=== PATIENT | female | born 1975 | race American Indian/Alaskan Native ===

== ENCOUNTER 2017-08-04 03:05 | Emergency (ER) | payer OTHER ==
[2017-08-04 03:40] LABS: Basophils # (Auto) 0.2 K/mm3 (0.0-0.1); Basophils % (Auto) 1.5 % (0.0-1.8); Eosinophils # (Auto) 0.4 K/mm3 (0.0-0.4); Hematocrit 26.7 % (30.3-42.9); Hemoglobin 9.6 gm/dl (10.1-14.3); Lymphocytes # (Auto) 1.4 K/mm3 (1.2-5.4); Lymphocytes % (Auto) 14.3 % (13.4-35.0); Mean Corpuscular HGB Conc 36 % (30-34); Mean Corpuscular Hemoglobin 34 pg (28-32); Mean Corpuscular Volume 94 fl (79-97); Monocytes # (Auto) 1.2 K/mm3 (0.0-0.8); Monocytes % (Auto) 12.3 % (0.0-7.3); Platelet Count 474 K/mm3 (140-440); Red Blood Count 2.84 M/mm3 (3.65-5.03); Red Cell Distribution Width 16.5 % (13.2-15.2)
[2017-08-04 03:47] VITALS: BP 136/89
[2017-08-04 03:53] LABS: Alanine Aminotransferase 15 units/L (7-56); Albumin 4.1 g/dL (3.9-5); BUN/Creatinine Ratio 25; Blood Urea Nitrogen 10 mg/dL (7-17); Calcium 8.4 mg/dL (8.4-10.2); Hemolysis Index 57; Lipase 27 units/L (13-60)
[2017-08-04] MEDS ORDERED: ZOFRAN IV ONE (03:53)
[2017-08-04] MEDS ORDERED: NACL 0.9% 1000 ML 1,000 ML IV ONE (03:53)
[2017-08-04] MEDS ORDERED: MORPHINE IV ONE (03:53)
[2017-08-04 04:38] LABS: Amorphous Crystals,Urine 1+; Bilirubin,Urine NEG (Negative); Blood,Urine LG (Negative); Color,Urine Yellow (Yellow); Mucus,Urine FEW /HPF; Protein,Urine <15 mg/dL mg/dL (Negative)
--- NOTE | 2017-08-04 05:37 | Emergency Department Report ---
HPI - General Chief Complaint: Abdominal Pain Time Seen by Provider: 08/04/17 03:35 - HPI HPI: The patient is a 41-year-old female presents for members of abdominal pain. The patient reports onset of abdominal pain at 1 AM, constant since onset, 10/ in severity, crampy in quality, exacerbated with retching, and associated with nausea and multiple episodes of nonbilious, nonbloody emesis. She states that she believes she has a infection from [place] food that she ate earlier tonight. The patient denies fever, chills, night sweats, diarrhea, blood in the stool, dark tarry stool, dysuria, hematuria, flank pain, genital discharge, inability to pass flatus. ED Past Medical Hx - Past Medical History Previous Medical History?: Yes Hx Sickle Cell Disease: Yes - Surgical History Past Surgical History?: Yes Additional Surgical History: - Social History Smoking Status: Current Every Day Smoker Substance Use Type: None, Alcohol - Medications Home Medications: Home Medications Medication Instructions Recorded Confirmed Last Taken Type HYDROcodone/APAP 5-325 [[place] 1 each PO Q6HR PRN #30 tablet 01/10/16 Unknown Rx 5/325] Polyethylene Glycol 3350 [Miralax 17 gm PO QDAY PRN #20 packet 01/10/16 Unknown Rx 3350] Acetaminophen/Codeine [Tylenol #3] 1 tab PO Q6H PRN #9 tab 03/15/16 Unknown Rx Bacitracin Zinc Oint 1 applicatio TP BID #1 tube 03/15/16 Unknown Rx Cephalexin [Keflex] 500 mg PO Q12HR #14 cap 03/15/16 Unknown Rx Ibuprofen [Motrin] 600 mg PO Q8H PRN #12 tablet 03/15/16 Unknown Rx Ondansetron [Zofran TAB] 4 mg PO Q8HR PRN #20 tablet 08/04/17 Unknown Rx traMADol [Ultram 50 MG tab] 50 mg PO Q6HR PRN #15 tablet 08/04/17 Unknown Rx ED Review of Systems ROS: Stated complaint: ABD PAIN Other details as noted in HPI Constitutional: denies: fever ENT: denies: throat or neck pain Respiratory: denies: cough, shortness of breath Cardiovascular: denies: chest pain Endocrine: denies unexplained weight loss or gain Gastrointestinal: reports abdominal pain, nausea Genitourinary: denies: dysuria Musculoskeletal: denies: leg swelling Skin: denies: rash Neurological: denies: headache Hematological/Lymphatic: denies: easy bleeding or easy bruising Psych: denies sadness or hopelessness Physical Exam - Physical Exam Vital Signs: Vital Signs 08/04/17 08/04/17 08/04/17 03:10 03:40 03:45 Temperature 98.6 F Pulse Rate 76 71 Respiratory 18 18 18 Rate Blood Pressure 138/90 Blood Pressure 136/89 [Right] O2 Sat by Pulse 96 98 Oximetry Physical Exam: General: well-nourished, well-developed, no acute distress Head: Normocephalic, atraumatic Eyes: normal sclera ENT: Mucous membranes are pink and moist Neck: trachea midline, neck supple, No neck stiffness, no cervical adenopathy Respiratory: Breath sounds equal bilaterally, no wheezing, rales, or rhonchi Cardio: S1 and S2 present, no murmurs, rubs, gallops, capillary refill is brisk Abdomen: Normoactive bowel sounds, soft abdomen, epigastric tenderness to palpation present, no rigidity, no guarding or rebound tenderness Musc: No pitting edema Skin: No rash Neuro: no facial drooping, normal speech Psych: Normal affect ED Course Vital Signs 08/04/17 08/04/17 08/04/17 03:10 03:40 03:45 Temperature 98.6 F Pulse Rate 76 71 Respiratory 18 18 18 Rate Blood Pressure 138/90 Blood Pressure 136/89 [Right] O2 Sat by Pulse 96 98 Oximetry ED Medical Decision Making - Lab Data Result diagrams: 08/04/17 03:23 08/04/17 03:23 - Medical Decision Making The patient was seen and examined by myself. The patient is placed on a funeral attendant and continuous pulse ox. On initial evaluation, the patient was found to be in no distress. Evaluation orders are placed. IV access is established and the patient is given 1 L normal saline fluid bolus and Zofran for nausea, and IV analgesic for pain Lab results were non-concerning including WBC, hemoglobin, hematocrit, electrolytes, renal function, LFTs, lipase, and urinalysis. The patient was reevaluated and reported that their symptoms were markedly improved. The patient is stable for discharge with outpatient follow-up. The patient is given follow-up and return instructions. The patient expressed understanding and agreed with the plan. The patient is discharged in stable condition. Critical care attestation.: If time is entered above; I have spent that time in minutes in the direct care of this critically ill patient, excluding procedure time. ED Disposition Clinical Impression: Dehydration, Abdominal pain, acute, Nausea and vomiting in adult Disposition: DC-01 TO HOME OR SELFCARE Is pt being admited?: No Does the pt Need Aspirin: No Condition: Stable Instructions: Abdominal Pain (ED), Gastroenteritis (ED) Referrals: GALINA WHEELER MD [Primary Care Provider] - 3-5 Days Time of Disposition: 05:37
== END 2017-08-04 06:30 | disposition home or self-care (01) ==
LOC: ED 03:05
DX: E86.0 Dehydration (principal); R10.9 Unspecified abdominal pain; R11.2 Nausea with vomiting, unspecified; F17.200 Nicotine dependence, unspecified, uncomplicated
CPT/HCPCS: 36415; 80053; 81001; 83690; 84703; 85025; 96361; 96374; 96375; 99284; J2270; J2405; J7030

== ENCOUNTER 2017-08-04 18:50 | Emergency (ER) | payer OTHER ==
[2017-08-04 19:36] LABS: Hematocrit 27.7 % (30.3-42.9); Hemoglobin 9.8 gm/dl (10.1-14.3); Mean Corpuscular HGB Conc 35 % (30-34); Mean Corpuscular Hemoglobin 33 pg (28-32); Mean Corpuscular Volume 94 fl (79-97); Platelet Count 421 K/mm3 (140-440); Red Blood Count 2.96 M/mm3 (3.65-5.03); Red Cell Distribution Width 16.5 % (13.2-15.2)
[2017-08-04] MEDS ORDERED: DILAUDID IV ONE ×2 (20:00→21:48)
[2017-08-04] MEDS ORDERED: ZOFRAN IV ONE (20:01)
[2017-08-04] MEDS ORDERED: NACL 0.9% 1000 ML 1,000 ML IV ONE (20:01)
--- NOTE | 2017-08-04 20:10 | Emergency Department Report ---
HPI - General Chief Complaint: Sickle Cell Crisis Time Seen by Provider: 08/04/17 19:53 - HPI HPI: Room 7 The patient is a 41-year-old female presenting with chief complaint sickle cell pain crisis. The patient states she was here previously after abdominal pain and back pain and nausea and vomiting after eating [place] food. The patient states she was treated and released. The patient states she took the Toradol those prescribed to her but it did not help. Patient states she then began developing pain consistent with her sickle cell crises and bilateral shoulders in the right lower extremity. The patient gives her pain a score of 10/10 Location: [See above] Duration: [See above] Quality: Sickle cell pain Severity: 10/10 Modifying factors: [see above] Context: [see above] Mode of transportation: [not driving] ED Past Medical Hx - Past Medical History Hx Sickle Cell Disease: Yes - Surgical History Past Surgical History?: Yes Additional Surgical History: - Family History Family history: no significant - Social History Smoking Status: Current Every Day Smoker (1/7 per day) Substance Use Type: Alcohol (occasional) - Medications Home Medications: Home Medications Medication Instructions Recorded Confirmed Last Taken Type HYDROcodone/APAP 5-325 [[place] 1 each PO Q6HR PRN #30 tablet 01/10/16 Unknown Rx 5/325] Polyethylene Glycol 3350 [Miralax 17 gm PO QDAY PRN #20 packet 01/10/16 Unknown Rx 3350] Acetaminophen/Codeine [Tylenol #3] 1 tab PO Q6H PRN #9 tab 03/15/16 Unknown Rx Bacitracin Zinc Oint 1 applicatio TP BID #1 tube 03/15/16 Unknown Rx Cephalexin [Keflex] 500 mg PO Q12HR #14 cap 03/15/16 Unknown Rx Ibuprofen [Motrin] 600 mg PO Q8H PRN #12 tablet 03/15/16 Unknown Rx HYDROcodone/APAP 5-325 [[place] 1 - 2 each PO Q6HR PRN #14 tablet 08/04/17 Unknown Rx 5/325] Metoclopramide [Reglan] 10 mg PO TID #30 tab 08/04/17 Unknown Rx Ondansetron [Zofran TAB] 4 mg PO Q8HR PRN #20 tablet 08/04/17 Unknown Rx Simethicone [Bicarsim Forte] 125 mg PO Q6HR #30 tab 08/04/17 Unknown Rx traMADol [Ultram 50 MG tab] 50 mg PO Q6HR PRN #15 tablet 08/04/17 Unknown Rx ED Review of Systems ROS: Stated complaint: SICKLE CELL Other details as noted in HPI Gastrointestinal: abdominal pain Musculoskeletal: myalgia Hematological/Lymphatic: other (sickle cell pain crisis) Physical Exam - Physical Exam Vital Signs: Vital Signs 08/04/17 19:12 Temperature 98.6 F Pulse Rate 87 Respiratory 20 Rate Blood Pressure 162/78 Blood Pressure 162/78 [Left] O2 Sat by Pulse 98 Oximetry Physical Exam: GENERAL: The patient is well-developed well-nourished female lying on stretcher appearing to be in mild discomfort [] HEENT: Normocephalic. Atraumatic. Extraocular motions are intact. Patient has moist mucous membranes. NECK: Supple. Trachea midline CHEST/LUNGS: Clear to auscultation. There is no respiratory distress noted. HEART/CARDIOVASCULAR: Regular. There is no tachycardia. There is no gallop rub or murmur. ABDOMEN: Abdomen is soft. Patient has normal bowel sounds. There is no abdominal distention. SKIN: There is no rash. There is no edema. There is no diaphoresis. NEURO: The patient is awake, alert, and oriented. The patient is cooperative. The patient has normal speech MUSCULOSKELETAL: There is no evidence of acute injury. ED Course Vital Signs 08/04/17 19:12 Temperature 98.6 F Pulse Rate 87 Respiratory 20 Rate Blood Pressure 162/78 Blood Pressure 162/78 [Left] O2 Sat by Pulse 98 Oximetry ED Medical Decision Making - Lab Data Result diagrams: 08/04/17 19:28 Laboratory Tests 08/04/17 19:28 WBC 15.7 H RBC 2.96 L Hgb 9.8 L Hct 27.7 L MCV 94 MCH 33 H MCHC 35 H RDW 16.5 H Plt Count 421 Percent Retic 7.98 H - Radiology Data Radiology results: report reviewed (CT abdomen and pelvis), image reviewed (CT abdomen and pelvis) FINAL REPORT EXAM: CT ABDOMEN PELVIS W CON HISTORY: abdominal pain, bloating TECHNIQUE: Standard enhanced CT of the abdomen and pelvis. Coronal and sagittal reconstruction was also performed. Delayed images through the kidneys and bladder was also obtained. Contrast: 100 mL Omnipaque 300 given IV. PRIORS: None. FINDINGS: Within the abdomen, the liver, spleen, pancreas, gallbladder, adrenal glands, and kidneys are unremarkable. No evidence for retroperitoneal or pelvic lymphadenopathy is seen. No soft tissue mass, fluid collection, inflammatory change, or free air is seen within the abdomen or pelvis. The appendix is normal. There is generalized distention of the colon up to the proximal sigmoid colon. The remainder of the colon is collapsed. No definite obstructing mass or inflammation is seen at the transition site (axial image 84). The entire small bowel has a normal caliber and the stomach is not distended. Within the pelvis, the bladder is unremarkable. Bilateral ureteral jets are noted on delayed imaging. The uterus is normal. In the left adnexa, there is a complex mass measuring at least 3.5 x 4.7 x 5.2 cm (axial image 125, coronal 98). This complex focus has fat, fluid, and calcification and is highly consistent with an ovarian dermoid. No evidence for mass or lymphadenopathy is seen in the pelvis. Images through the upper abdomen include the lung bases which are expanded and clear. Bony structures show diffuse areas of lucency and sclerosis particularly throughout the pelvis, proximal femurs, and L5. Vertebral bodies have an H-shaped configuration throughout. Correlation with any history of hemoglobinopathies such as sickle cell anemia should be performed. More rarely, this can be seen in Gaucher disease. IMPRESSION: 1. Distention of the colon up to the proximal sigmoid colon. No etiology for the transition is seen. The distal colon and rectum are collapsed. Findings may be consistent with mild ileus 2. 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 Abnormal appearance to the bony structures. Correlation with any hemoglobinopathies such as sickle cell anemia should be performed. Transcribed By: [facility] Dictated By: PRASANTH LUND MD Electronically Authenticated By: PRASANTH LUND MD Signed Date/Time: 08/04/172134 DD/ 34 TD/TT: 08/04/172134 - Differential Diagnosis gastritis, gastroenteritis, sickle cell pain crisis Critical care attestation.: If time is entered above; I have spent that time in minutes in the direct care of this critically ill patient, excluding procedure time. ED Disposition Clinical Impression: Sickle cell pain crisis, Ileus Disposition: TO HOME OR SELFCARE Is pt being admited?: No Does the pt Need Aspirin: No Condition: Stable Instructions: Ileus (ED), Sickle Cell Crisis (ED) Additional Instructions: Return to the emergency department immediately should you develop worsening symptoms, fever, inability to tolerate food or liquid or any other concerns. Prescriptions: HYDROcodone/APAP 5-325 [[place] 5/325] 1 - 2 each PO Q6HR PRN #14 tablet PRN Reason: Pain Metoclopramide [Reglan] 10 mg PO TID #30 tab Simethicone [Bicarsim Forte] 125 mg PO Q6HR #30 tab Referrals: GALINA WHEELER MD [Primary Care Provider] - 3-5 Days KEN MILLER DO [Staff Physician] - 3-5 Days ( is a blood bank manager. Please follow-up with him for further evaluation) LES CORADO MD [Staff Physician] - 3-5 Days (Dr. Corado is a cabin equipment supervisor. Please follow-up with him for further evaluation) Time of Disposition: 21:45
[2017-08-04 20:39] LABS: Bacteria,Urine 3+ /HPF (Negative); Bilirubin,Urine NEG (Negative); Blood,Urine LG (Negative); Color,Urine Yellow (Yellow); Mucus,Urine FEW /HPF; Urobilinogen,Urine < 2.0 mg/dL (<2.0)
[2017-08-04 20:48] LABS: Band Neutrophils # (Manual) 1.9 K/mm3; Basophils % (Manual) 0 % (0.0-1.8); Eosinophils % (Manual) 0 % (0.0-4.3); Total Cells Counted 100
[2017-08-04 20:51] LABS: Anisocytosis 3+; Sickle Cells 1+; Target Cells 1+
[2017-08-04 20:52] LABS: Platelet Estimate Consistent w Auto; Poikilocytosis 1+
[2017-08-04] MEDS ORDERED: MYLICON PO ONE (21:00)
--- NOTE | 2017-08-04 21:39 | Cat Scan Report ---
FINAL REPORT EXAM: CT ABDOMEN PELVIS W CON HISTORY: abdominal pain, bloating TECHNIQUE: Standard enhanced CT of the abdomen and pelvis. Coronal and sagittal reconstruction was also performed. Delayed images through the kidneys and bladder was also obtained. Contrast: 100 mL Omnipaque 300 given IV. PRIORS: None. FINDINGS: Within the abdomen, the liver, spleen, pancreas, gallbladder, adrenal glands, and kidneys are unremarkable. No evidence for retroperitoneal or pelvic lymphadenopathy is seen. No soft tissue mass, fluid collection, inflammatory change, or free air is seen within the abdomen or pelvis. The appendix is normal. There is generalized distention of the colon up to the proximal sigmoid colon. The remainder of the colon is collapsed. No definite obstructing mass or inflammation is seen at the transition site (axial image 84). The entire small bowel has a normal caliber and the stomach is not distended. Within the pelvis, the bladder is unremarkable. Bilateral ureteral jets are noted on delayed imaging. The uterus is normal. In the left adnexa, there is a complex mass measuring at least 3.5 x 4.7 x 5.2 cm (axial image 125, coronal 98). This complex focus has fat, fluid, and calcification and is highly consistent with an ovarian dermoid. No evidence for mass or lymphadenopathy is seen in the pelvis. Images through the upper abdomen include the lung bases which are expanded and clear. Bony structures show diffuse areas of lucency and sclerosis particularly throughout the pelvis, proximal femurs, and L5. Vertebral bodies have an H-shaped configuration throughout. Correlation with any history of hemoglobinopathies such as sickle cell anemia should be performed. More rarely, this can be seen in Gaucher disease. IMPRESSION: 1. Distention of the colon up to the proximal sigmoid colon. No etiology for the transition is seen. The distal colon and rectum are collapsed. Findings may be consistent with mild ileus 2. 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 Abnormal appearance to the bony structures. Correlation with any hemoglobinopathies such as sickle cell anemia should be performed.
[2017-08-04] MEDS ORDERED: REGLAN IV ONE (21:48)
[2017-08-04 23:13] VITALS: BP 122/78
== END 2017-08-04 23:00 | disposition home or self-care (01) ==
LOC: ED 18:50
DX: D57.00 Hb-SS disease with crisis, unspecified (principal); K56.7 Ileus, unspecified; F17.200 Nicotine dependence, unspecified, uncomplicated
CPT/HCPCS: 36415; 74177; 81001; 85007; 85025; 85045; 96361; 96374; 96375; 96376; 99284; J1170; J2405; J2765; J7030; Q9967

== ENCOUNTER 2018-09-17 11:46 | Emergency (ER) | payer OTHER ==
--- NOTE | 2018-09-17 11:54 | Emergency Department Report ---
Chief Complaint: Back Pain/Injury Stated Complaint: BACK/ABD/HIP PAIN Time Seen by Provider: 09/17/18 11:52 - HPI History of Present Illness: HX SCD OFF MEDS PCP NONE PSH CSEC LMP LAST MONTH 10TH NO KNOW DRUG ALLERGIES CO FREQUENCY, LOW BACK PAIN AND ABD PAIN. LAST CRISIS "BEEN A WHILE" MSE COMPLETED MSE screening note: Focused history and physical exam performed. Due to findings the following was ordered: ED Disposition for MSE Condition: Stable
[2018-09-17] MEDS ORDERED: NACL 0.9% 1000 ML 1,000 ML IV ONE (11:55)
[2018-09-17] MEDS ORDERED: NORCO 10/325 PO ONE (11:56)
[2018-09-17 12:21] LABS: Hematocrit 27.8 % (30.3-42.9); Hemoglobin 9.8 gm/dl (10.1-14.3); Mean Corpuscular HGB Conc 35 % (30-34); Mean Corpuscular Volume 99 fl (79-97); Platelet Count 425 K/mm3 (140-440); Red Blood Count 2.82 M/mm3 (3.65-5.03); Red Cell Distribution Width 16.2 % (13.2-15.2)
[2018-09-17 12:44] LABS: Alanine Aminotransferase 11 units/L (7-56); Albumin 4.3 g/dL (3.9-5); BUN/Creatinine Ratio 23; Blood Urea Nitrogen 9 mg/dL (7-17); Calcium 8.5 mg/dL (8.4-10.2); Hemolysis Index 17
[2018-09-17 13:06] LABS: Bilirubin,Urine NEG (Negative); Blood,Urine NEG (Negative); Color,Urine Yellow (Yellow); Mucus,Urine FEW /HPF; Protein,Urine <15 mg/dL mg/dL (Negative); Urobilinogen,Urine < 2.0 mg/dL (<2.0); WBC,Urine < 1.0 /HPF (0.0-6.0)
[2018-09-17 13:07] LABS: HCG Qualitative,Urine Negative (Negative)
--- NOTE | 2018-09-17 13:31 | Emergency Department Report ---
ED Back Pain/Injury HPI - General Chief Complaint: Back Pain/Injury Stated Complaint: BACK/ABD/HIP PAIN Time Seen by Provider: 09/17/18 11:52 Source: patient Limitations: No Limitations - History of Present Illness Initial Comments: This is a foot row-[id number] female with a history of sickle cell disease who presents to ED complaining of low back pain 2-3 days. Patient also is complaining of frequent urination but denies dysuria or vaginal bleeding. Patient states that she knows her urine is darker than normal. MD Complaint: back pain -: Gradual Place: home Radiation: none Severity: mild Severity scale (0 -10): 4 - Related Data Previous Rx's Medication Instructions Recorded Last Taken Type HYDROcodone/APAP 5-325 [[place] 1 each PO Q6HR PRN #30 tablet 01/10/16 Unknown Rx 5/325] Polyethylene Glycol 3350 [Miralax 17 gm PO QDAY PRN #20 packet 01/10/16 Unknown Rx 3350] Bacitracin Zinc Oint 1 applicatio TP BID #1 tube 03/15/16 Unknown Rx Ibuprofen [Motrin] 600 mg PO Q8H PRN #12 tablet 03/15/16 Unknown Rx cephALEXin [Keflex] 500 mg PO Q12HR #14 cap 03/15/16 Unknown Rx HYDROcodone/APAP 5-325 [[place] 1 - 2 each PO Q6HR PRN #14 tablet 08/04/17 Unknown Rx 5/325] Metoclopramide [Reglan] 10 mg PO TID #30 tab 08/04/17 Unknown Rx Ondansetron [Zofran TAB] 4 mg PO Q8HR PRN #20 tablet 08/04/17 Unknown Rx Simethicone [Bicarsim Forte] 125 mg PO Q6HR #30 tab 08/04/17 Unknown Rx traMADol [Ultram 50 MG tab] 50 mg PO Q6HR PRN #15 tablet 08/04/17 Unknown Rx HYDROcodone/ACETAMINOPHEN [[place] 1 each PO Q6HR #12 tablet 05/15/18 Unknown Rx 5-325 Tablet] Acetaminophen/Codeine [Tylenol 1 tab PO Q6H PRN #9 tab 09/17/18 Unknown Rx /Codeine # 3 tab] Cyclobenzaprine [Flexeril] 10 mg PO QHS PRN #25 tablet 09/17/18 Unknown Rx Allergies Allergy/AdvReac Type Severity Reaction Status Date / Time No Known Allergies Allergy Verified 05/15/18 08:09 ED Review of Systems ROS: Stated complaint: BACK/ABD/HIP PAIN Other details as noted in HPI Comment: All other systems reviewed and negative ED Past Medical Hx - Past Medical History Previous Medical History?: Yes Hx Sickle Cell Disease: Yes - Surgical History Past Surgical History?: Yes Additional Surgical History: - Social History Smoking Status: Current Every Day Smoker Substance Use Type: None - Medications Home Medications: Home Medications Medication Instructions Recorded Confirmed Last Taken Type HYDROcodone/APAP 5-325 [[place] 1 each PO Q6HR PRN #30 tablet 01/10/16 Unknown Rx 5/325] Polyethylene Glycol 3350 [Miralax 17 gm PO QDAY PRN #20 packet 01/10/16 Unknown Rx 3350] Bacitracin Zinc Oint 1 applicatio TP BID #1 tube 03/15/16 Unknown Rx Ibuprofen [Motrin] 600 mg PO Q8H PRN #12 tablet 03/15/16 Unknown Rx cephALEXin [Keflex] 500 mg PO Q12HR #14 cap 03/15/16 Unknown Rx HYDROcodone/APAP 5-325 [[place] 1 - 2 each PO Q6HR PRN #14 tablet 08/04/17 Unknown Rx 5/325] Metoclopramide [Reglan] 10 mg PO TID #30 tab 08/04/17 Unknown Rx Ondansetron [Zofran TAB] 4 mg PO Q8HR PRN #20 tablet 08/04/17 Unknown Rx Simethicone [Bicarsim Forte] 125 mg PO Q6HR #30 tab 08/04/17 Unknown Rx traMADol [Ultram 50 MG tab] 50 mg PO Q6HR PRN #15 tablet 08/04/17 Unknown Rx HYDROcodone/ACETAMINOPHEN [[place] 1 each PO Q6HR #12 tablet 05/15/18 Unknown Rx 5-325 Tablet] Acetaminophen/Codeine [Tylenol 1 tab PO Q6H PRN #9 tab 09/17/18 Unknown Rx /Codeine # 3 tab] Cyclobenzaprine [Flexeril] 10 mg PO QHS PRN #25 tablet 09/17/18 Unknown Rx ED Physical Exam - General Limitations: No Limitations General appearance: alert, in no apparent distress - Head Head exam: Present: atraumatic, normocephalic - Eye Eye exam: Present: normal appearance - ENT ENT exam: Present: mucous membranes moist - Neck Neck exam: Present: normal inspection - Respiratory Respiratory exam: Present: normal lung sounds bilaterally. Absent: respiratory distress - Cardiovascular Cardiovascular Exam: Present: regular rate, normal rhythm. Absent: systolic murmur, diastolic murmur, rubs, gallop - GI/Abdominal GI/Abdominal exam: Present: soft, normal bowel sounds. Absent: distended, tenderness, guarding - Extremities Exam Extremities exam: Present: normal inspection - Back Exam Back exam: Present: normal inspection, full ROM. Absent: tenderness, CVA tenderness (R), CVA tenderness (L) - Neurological Exam Neurological exam: Present: alert, oriented X3, normal gait - Psychiatric Psychiatric exam: Present: normal affect, normal mood - Skin Skin exam: Present: warm, dry, intact, normal color. Absent: rash ED Course Vital Signs 09/17/18 11:51 Temperature 98.2 F Pulse Rate 80 Respiratory 16 Rate Blood Pressure 159/92 O2 Sat by Pulse 99 Oximetry ED Medical Decision Making - Lab Data Result diagrams: 09/17/18 12:05 09/17/18 12:05 Laboratory Last Values WBC 9.7 K/mm3 (4.5-11.0) 09/17/18 12:05 RBC 2.82 M/mm3 (3.65-5.03) L 09/17/18 12:05 Hgb 9.8 gm/dl (10.1-14.3) L 09/17/18 12:05 Hct 27.8 % (30.3-42.9) L 09/17/18 12:05 MCV 99 fl (79-97) H 09/17/18 12:05 MCH 35 pg (28-32) H 09/17/18 12:05 MCHC 35 % (30-34) H 09/17/18 12:05 RDW 16.2 % (13.2-15.2) H 09/17/18 12:05 Plt Count 425 K/mm3 (140-440) 09/17/18 12:05 Percent Retic 6.69 % (0.78-2.58) H 09/17/18 12:05 Sodium 136 mmol/L (137-145) L 09/17/18 12:05 Potassium 4.2 mmol/L (3.6-5.0) 09/17/18 12:05 Chloride 100.7 mmol/L (98-107) 09/17/18 12:05 Carbon Dioxide 23 mmol/L (22-30) 09/17/18 12:05 Anion Gap 17 mmol/L 09/17/18 12:05 BUN 9 mg/dL (7-17) 09/17/18 12:05 Creatinine 0.4 mg/dL (0.7-1.2) L 09/17/18 12:05 Estimated GFR > 60 ml/min 09/17/18 12:05 BUN/Creatinine Ratio 23 % 09/17/18 12:05 Glucose 92 mg/dL (65-100) 09/17/18 12:05 Calcium 8.5 mg/dL (8.4-10.2) 09/17/18 12:05 Total Bilirubin 1.20 mg/dL (0.1-1.2) 09/17/18 12:05 AST 34 units/L (5-40) 09/17/18 12:05 ALT 11 units/L (7-56) 09/17/18 12:05 Alkaline Phosphatase 82 units/L (35-129) 09/17/18 12:05 Total Protein 7.5 g/dL (6.3-8.2) 09/17/18 12:05 Albumin 4.3 g/dL (3.9-5) 09/17/18 12:05 Albumin/Globulin Ratio 1.3 % 09/17/18 12:05 Urine Color Yellow (Yellow) 09/17/18 12:26 Urine Turbidity Clear (Clear) 09/17/18 12:26 Urine pH 5.0 (5.0-7.0) 09/17/18 12:26 Ur Specific [place] 1.010 (1.003-1.030) 09/17/18 12:26 Urine Protein <15 mg/dl mg/dL (Negative) 09/17/18 12:26 Urine Glucose (UA) Neg mg/dL (Negative) 09/17/18 12:26 Urine Ketones Neg mg/dL (Negative) 09/17/18 12:26 Urine Blood Neg (Negative) 09/17/18 12:26 Urine Nitrite Neg (Negative) 09/17/18 12:26 Urine Bilirubin Neg (Negative) 09/17/18 12:26 Urine Urobilinogen < 2.0 mg/dL (<2.0) 09/17/18 12:26 Ur Leukocyte Esterase Neg (Negative) 09/17/18 12:26 Urine WBC (Auto) < 1.0 /HPF (0.0-6.0) 09/17/18 12:26 Urine RBC (Auto) 1.0 /HPF (0.0-6.0) 09/17/18 12:26 U Epithel Cells (Auto) 2.0 /HPF (0-13.0) 09/17/18 12:26 Urine Mucus Few /HPF 09/17/18 12:26 Urine HCG, Qual Negative (Negative) 09/17/18 12:26 - Medical Decision Making 42-year-old female presents with lower back muscle strain. Labs within normal limits, patient is not in sickle cell crisis Patient is in no acute distress. Patient understands pain medication in the ED D. Labs are within normal limits. Reticulocyte count is 6.9 which is appropriate given the patient's history. Patient states she will follow-up with her primary care doctor. She is in no respiratory distress and states she'll follow up. Patient discharged home with instructions and medications Critical care attestation.: If time is entered above; I have spent that time in minutes in the direct care of this critically ill patient, excluding procedure time. ED Disposition Clinical Impression: Strain of muscle, fascia and tendon of lower back, initial encounter Disposition: TO HOME OR SELFCARE Is pt being admited?: No Does the pt Need Aspirin: No Condition: Stable Instructions: Muscle Strain (ED), Low Back Strain (ED), Acute Low Back Pain (ED) Additional Instructions: Make sure to follow up with the primary care physician as discussed. Take all your medications as you've been prescribed. If you have any worsening symptoms or develop new symptoms please return to ED immediately. Prescriptions: Cyclobenzaprine [Flexeril] 10 mg PO QHS PRN #25 tablet PRN Reason: Muscle Spasm Acetaminophen/Codeine [Tylenol /Codeine # 3 tab] 1 tab PO Q6H PRN #9 tab PRN Reason: Pain , Severe (7-10) Referrals: SIMON PIERCE MD [Primary Care Provider] - 3-5 Days Forms: Work/School Release Form(ED) Time of Disposition: 14:03
[2018-09-17 20:52] VITALS: BP 159/92
== END 2018-09-17 14:24 | disposition home or self-care (01) ==
LOC: ED 11:46
DX: S39.012A Strain of muscle, fascia and tendon of lower back, initial encounter (principal); R35.0 Frequency of micturition; D57.1 Sickle-cell disease without crisis; F17.200 Nicotine dependence, unspecified, uncomplicated; X58.XXXA Exposure to other specified factors, initial encounter; Y93.89 Activity, other specified; Y92.89 Other specified places as the place of occurrence of the external cause; Y99.8 Other external cause status
CPT/HCPCS: 36415; 80053; 81001; 81025; 85027; 85045; 99283; J7030

== ENCOUNTER 2019-09-08 20:00 | Emergency (ER) | payer OTHER ==
[2019-09-08 21:07] VITALS: BP 153/102
[2019-09-08] MEDS ORDERED: ONDANSETRON 4 MG ODT TAB PO ONE (21:17)
[2019-09-08] MEDS ORDERED: ACETAMINOPHEN 500 MG TAB PO ONE (21:18)
--- NOTE | 2019-09-08 21:42 | Emergency Department Report ---
ED ENT HPI - General Chief complaint: Upper Respiratory Infection Stated complaint: NOSE BLEED Time Seen by Provider: 09/08/19 21:26 Source: patient Mode of arrival: Ambulatory Limitations: No Limitations - History of Present Illness Initial comments: 43-year-old F [place] Citizen female with emerge department complaining of 2-week history of nasal nasal congestion with yellow-green discharge and noticed some blood after blowing her nose earlier this morning. She is not had any issues with bleeding since that time reports no fever chills or sweats no hemoptysis no hematemesis no hematochezia no chest pain or palpitations no trauma. States that she also has had allergies and thinks the pulmonary has been irritating her as well. Location: nose Severity: moderate Quality: dull Improves with: none Worsens with: none - Related Data Previous Rx's Medication Instructions Recorded Last Taken Type HYDROcodone/APAP 5-325 [[place] 1 each PO Q6HR PRN #30 tablet 01/10/16 Unknown Rx 5/325] polyethylene glycoL 3350 [Miralax 17 gm PO QDAY PRN #20 packet 01/10/16 Unknown Rx 3350] Bacitracin Zinc Oint 1 applicatio TP BID #1 tube 03/15/16 Unknown Rx Ibuprofen [Motrin] 600 mg PO Q8H PRN #12 tablet 03/15/16 Unknown Rx cephALEXin [Keflex] 500 mg PO Q12HR #14 cap 03/15/16 Unknown Rx HYDROcodone/APAP 5-325 [[place] 1 - 2 each PO Q6HR PRN #14 tablet 08/04/17 Unknown Rx 5/325] Metoclopramide [Reglan] 10 mg PO TID #30 tab 08/04/17 Unknown Rx Ondansetron [Zofran TAB] 4 mg PO Q8HR PRN #20 tablet 08/04/17 Unknown Rx Simethicone [Bicarsim Forte] 125 mg PO Q6HR #30 tab 08/04/17 Unknown Rx traMADoL [Ultram 50 MG tab] 50 mg PO Q6HR PRN #15 tablet 08/04/17 Unknown Rx HYDROcodone/ACETAMINOPHEN [[place] 1 each PO Q6HR #12 tablet 05/15/18 Unknown Rx 5-325 Tablet] Acetaminophen/Codeine [Tylenol 1 tab PO Q6H PRN #9 tab 09/17/18 Unknown Rx /Codeine # 3 tab] Cyclobenzaprine [Flexeril] 10 mg PO QHS PRN #25 tablet 09/17/18 Unknown Rx Amoxicillin/Potassium Clav 1 each PO BID #20 tablet 09/08/19 Unknown Rx [Augmentin 875-125 Tablet] Allergies Allergy/AdvReac Type Severity Reaction Status Date / Time No Known Allergies Allergy Verified 09/08/19 21:03 ED Dental HPI - General Chief complaint: Upper Respiratory Infection Stated complaint: NOSE BLEED Time Seen by Provider: 09/08/19 21:26 Source: patient Mode of arrival: Ambulatory Limitations: No Limitations - Related Data Previous Rx's Medication Instructions Recorded Last Taken Type HYDROcodone/APAP 5-325 [[place] 1 each PO Q6HR PRN #30 tablet 01/10/16 Unknown Rx 5/325] polyethylene glycoL 3350 [Miralax 17 gm PO QDAY PRN #20 packet 01/10/16 Unknown Rx 3350] Bacitracin Zinc Oint 1 applicatio TP BID #1 tube 03/15/16 Unknown Rx Ibuprofen [Motrin] 600 mg PO Q8H PRN #12 tablet 03/15/16 Unknown Rx cephALEXin [Keflex] 500 mg PO Q12HR #14 cap 03/15/16 Unknown Rx HYDROcodone/APAP 5-325 [[place] 1 - 2 each PO Q6HR PRN #14 tablet 08/04/17 Unknown Rx 5/325] Metoclopramide [Reglan] 10 mg PO TID #30 tab 08/04/17 Unknown Rx Ondansetron [Zofran TAB] 4 mg PO Q8HR PRN #20 tablet 08/04/17 Unknown Rx Simethicone [Bicarsim Forte] 125 mg PO Q6HR #30 tab 08/04/17 Unknown Rx traMADoL [Ultram 50 MG tab] 50 mg PO Q6HR PRN #15 tablet 08/04/17 Unknown Rx HYDROcodone/ACETAMINOPHEN [[place] 1 each PO Q6HR #12 tablet 05/15/18 Unknown Rx 5-325 Tablet] Acetaminophen/Codeine [Tylenol 1 tab PO Q6H PRN #9 tab 09/17/18 Unknown Rx /Codeine # 3 tab] Cyclobenzaprine [Flexeril] 10 mg PO QHS PRN #25 tablet 09/17/18 Unknown Rx Amoxicillin/Potassium Clav 1 each PO BID #20 tablet 09/08/19 Unknown Rx [Augmentin 875-125 Tablet] Allergies Allergy/AdvReac Type Severity Reaction Status Date / Time No Known Allergies Allergy Verified 09/08/19 21:03 ED Review of Systems ROS: Stated complaint: NOSE BLEED Other details as noted in HPI Comment: All other systems reviewed and negative ED Past Medical Hx - Past Medical History Previous Medical History?: Yes Hx Sickle Cell Disease: Yes - Surgical History Past Surgical History?: Yes Additional Surgical History: x2 - Social History Smoking Status: Current Every Day Smoker Substance Use Type: Alcohol - Medications Home Medications: Home Medications Medication Instructions Recorded Confirmed Last Taken Type HYDROcodone/APAP 5-325 [[place] 1 each PO Q6HR PRN #30 tablet 01/10/16 Unknown Rx 5/325] polyethylene glycoL 3350 [Miralax 17 gm PO QDAY PRN #20 packet 01/10/16 Unknown Rx 3350] Bacitracin Zinc Oint 1 applicatio TP BID #1 tube 03/15/16 Unknown Rx Ibuprofen [Motrin] 600 mg PO Q8H PRN #12 tablet 03/15/16 Unknown Rx cephALEXin [Keflex] 500 mg PO Q12HR #14 cap 03/15/16 Unknown Rx HYDROcodone/APAP 5-325 [[place] 1 - 2 each PO Q6HR PRN #14 tablet 08/04/17 Unknown Rx 5/325] Metoclopramide [Reglan] 10 mg PO TID #30 tab 08/04/17 Unknown Rx Ondansetron [Zofran TAB] 4 mg PO Q8HR PRN #20 tablet 08/04/17 Unknown Rx Simethicone [Bicarsim Forte] 125 mg PO Q6HR #30 tab 08/04/17 Unknown Rx traMADoL [Ultram 50 MG tab] 50 mg PO Q6HR PRN #15 tablet 08/04/17 Unknown Rx HYDROcodone/ACETAMINOPHEN [[place] 1 each PO Q6HR #12 tablet 05/15/18 Unknown Rx 5-325 Tablet] Acetaminophen/Codeine [Tylenol 1 tab PO Q6H PRN #9 tab 09/17/18 Unknown Rx /Codeine # 3 tab] Cyclobenzaprine [Flexeril] 10 mg PO QHS PRN #25 tablet 09/17/18 Unknown Rx Amoxicillin/Potassium Clav 1 each PO BID #20 tablet 09/08/19 Unknown Rx [Augmentin 875-125 Tablet] ED Physical Exam - General Limitations: No Limitations General appearance: alert, in no apparent distress - Head Head exam: Present: atraumatic, normocephalic - Eye Eye exam: Present: normal appearance - ENT ENT exam: Present: mucous membranes moist, other (Nasal irritation bilaterally with excessive the yellow-green mucus. There are several dry readings pulling away from a new mucosal calling causing a deep red friable appearance no active bleeding. There is maxillary sinus tenderness to percussion) - Neck Neck exam: Present: normal inspection - Respiratory Respiratory exam: Present: normal lung sounds bilaterally. Absent: respiratory distress - Cardiovascular Cardiovascular Exam: Present: regular rate, normal rhythm. Absent: systolic murmur, diastolic murmur, rubs, gallop - GI/Abdominal GI/Abdominal exam: Present: soft, normal bowel sounds. Absent: tenderness, rebound, hyperactive bowel sounds, hypoactive bowel sounds, organomegaly, mass - Extremities Exam Extremities exam: Present: normal inspection, normal capillary refill - Back Exam Back exam: Present: normal inspection, full ROM - Neurological Exam Neurological exam: Present: alert, oriented X3, CN II-XII intact, normal gait - Psychiatric Psychiatric exam: Present: normal affect, normal mood - Skin Skin exam: Present: warm, dry, intact, normal color. Absent: rash ED Course Vital Signs 09/08/19 21:00 Temperature 98.8 F Pulse Rate 89 Respiratory 16 Rate Blood Pressure 153/102 O2 Sat by Pulse 95 Oximetry Critical care attestation.: If time is entered above; I have spent that time in minutes in the direct care of this critically ill patient, excluding procedure time. ED Disposition Clinical Impression: Sinusitis Disposition: DC-01 TO HOME OR SELFCARE Is pt being admited?: No Does the pt Need Aspirin: No Condition: Stable Instructions: Sinusitis (ED) Additional Instructions: Please remember to mixing picker tender the [id number] Nasonex or Flonase and utilize as as directed as we discussed Prescriptions: Amoxicillin/Potassium Clav [Augmentin 875-125 Tablet] 1 each PO BID #20 tablet Referrals: [facility] [Provider Group] - 3-5 Days
== END 2019-09-08 21:41 | disposition home or self-care (01) ==
LOC: ED 20:00
DX: J32.9 Chronic sinusitis, unspecified (principal); F17.200 Nicotine dependence, unspecified, uncomplicated; Z79.899 Other long term (current) drug therapy
CPT/HCPCS: 99282; Q0162

== ENCOUNTER 2020-08-31 15:11 | Emergency (ER) | payer SELFPAY | END 2020-09-01 07:28 | LOC: ED 15:11 | DX: Z00.8 Encounter for other general examination (principal); Z53.21 Procedure and treatment not carried out due to patient leaving prior to being seen by health care provider ==

== ENCOUNTER 2020-09-01 20:28 | Emergency (ER) | payer OTHER ==
--- NOTE | 2020-09-01 21:07 | Event Note ---
ED Screening Note Date of service: 09/01/20 Time: 21:07 ED Screening Note: Patient complains of painless hematochezia x yesterday Denies abdominal pain or rectal pain History of sickle cell Denies blood thinner use This initial assessment/diagnostic orders/clinical plan/treatment(s) is/are subj ect to change based on patients health status, clinical progression and re- assessment by fellow clinical providers in the ED. Further treatment and workup at subsequent clinical providers discretion. Patient/guardian urged not to elope from the ED as their condition may be serious if not clinically assessed and managed. Initial orders include: Labs
[2020-09-01 21:35] LABS: Hematocrit 28.5 % (30.3-42.9); Hemoglobin 10.3 gm/dl (10.1-14.3); Mean Corpuscular HGB Conc 36 % (30-34); Mean Corpuscular Volume 98 fl (79-97); Platelet Count 412 K/mm3 (140-440); Red Cell Distribution Width 16.1 % (13.2-15.2)
[2020-09-01 21:42] LABS: Bilirubin,Urine NEG (Negative); Blood,Urine SM (Negative); Color,Urine Yellow (Yellow); Protein,Urine <15 mg/dL mg/dL (Negative); Urobilinogen,Urine < 2.0 mg/dL (<2.0)
[2020-09-01 21:44] LABS: INR 1.11 (0.87-1.13)
[2020-09-01 21:45] LABS: Partial Thromboplastin Time 28.6 Sec. (24.2-36.6)
[2020-09-01 21:57] LABS: Alanine Aminotransferase 15 units/L (7-56); Albumin 4.6 g/dL (3.9-5); Blood Urea Nitrogen 12 mg/dL (7-17); Hemolysis Index 13
[2020-09-01 22:04] LABS: BUN/Creatinine Ratio 30
[2020-09-01 22:07] LABS: Total Cells Counted 100
[2020-09-01 22:08] LABS: Platelet Estimate Consistent w Auto
[2020-09-01 22:09] LABS: Anisocytosis RARE; Target Cells 2+
--- NOTE | 2020-09-01 23:20 | Emergency Department Report ---
ED General Adult HPI - General Chief complaint: GI Bleed Stated complaint: RECTAL BLEEDING PUI?: No Time Seen by Provider: 09/01/20 21:06 Source: patient, RN notes reviewed, old records reviewed Mode of arrival: Ambulatory Limitations: No Limitations - History of Present Illness Initial comments: The patient was evaluated in the emergency department for symptoms described in the history of present illness. He/she was evaluated in the context of the global COVID-19 pandemic, which necessitated consideration that the patient might be at risk for infection with the virus that causes COVID-19. Institutional protocols and algorithms that pertain to the evaluation of patients at risk for COVID-19 are in a state of rapid change based on information released by regulatory bodies including the CDC and federal and state organizations. These policies and algorithms were followed during the patient's care in the emergency department. Please note that these policies, procedures and recommendations changed on a rapid basis. The patient is a 44-year-old female. She has a history of sickle cell disease. She states that she is not . She may have a history of hypertension. The patient presents to the ER today with a complaint of painless bright red blood per rectum for 2 days. To me, she denies headache, neck pain, chest pain, abdominal pain, shortness of breath and hematemesis. The patient also denies ta nina anticoagulants. She does not have a history of inflammatory bowel disease that she is aware of. She states that she has not really been straining to have a large bowel movement. She reports that 2 days ago, she had a large bloody bowel movement which was dark red, with brown stool. She had a similar event happened to her yesterday. She has been reluctant to have a bowel movement today, secondary to concern for recurrent bleeding. Patient states that she is not , and reports that she has not delivered or given in the past 6 weeks. -: days(s) Consistency: intermittent Improves with: other (Not defecate) Worsens with: other (Defecating) Associated Symptoms: denies other symptoms - Related Data Previous Rx's Medication Instructions Recorded Last Taken Type polyethylene glycoL 3350 [Miralax 17 gm PO QDAY PRN #20 packet 01/10/16 Unknown Rx 3350] Bacitracin Zinc Oint 1 applicatio TP BID #1 tube 03/15/16 Unknown Rx Metoclopramide [Reglan] 10 mg PO TID #30 tab 08/04/17 Unknown Rx Ondansetron [Zofran TAB] 4 mg PO Q8HR PRN #20 tablet 08/04/17 Unknown Rx Simethicone [Bicarsim Forte] 125 mg PO Q6HR #30 tab 08/04/17 Unknown Rx Acetaminophen [Non-Aspirin Extra 500 mg PO Q6HR PRN #30 tablet 09/02/20 Unknown Rx Strength] Potassium Chloride 20 meq PO QDAY #15 packet 09/02/20 Unknown Rx Allergies Allergy/AdvReac Type Severity Reaction Status Date / Time No Known Allergies Allergy Verified 09/08/19 21:03 ED Review of Systems ROS: Stated complaint: RECTAL BLEEDING Other details as noted in HPI Comment: All other systems reviewed and negative Gastrointestinal: hematochezia ED Past Medical Hx - Past Medical History Previous Medical History?: Yes Hx Sickle Cell Disease: Yes - Surgical History Past Surgical History?: Yes Additional Surgical History: x2 - Social History Smoking Status: Current Every Day Smoker Substance Use Type: Alcohol - Medications Home Medications: Home Medications Medication Instructions Recorded Confirmed Last Taken Type polyethylene glycoL 3350 [Miralax 17 gm PO QDAY PRN #20 packet 01/10/16 Unknown Rx 3350] Bacitracin Zinc Oint 1 applicatio TP BID #1 tube 03/15/16 Unknown Rx Metoclopramide [Reglan] 10 mg PO TID #30 tab 08/04/17 Unknown Rx Ondansetron [Zofran TAB] 4 mg PO Q8HR PRN #20 tablet 08/04/17 Unknown Rx Simethicone [Bicarsim Forte] 125 mg PO Q6HR #30 tab 08/04/17 Unknown Rx Acetaminophen [Non-Aspirin Extra 500 mg PO Q6HR PRN #30 tablet 09/02/20 Unknown Rx Strength] Potassium Chloride 20 meq PO QDAY #15 packet 09/02/20 Unknown Rx ED Physical Exam - General Limitations: No Limitations, Other (Chaperoned and escorted by nurse Izabela Khan) General appearance: alert, in no apparent distress - Head Head exam: Present: atraumatic, normocephalic - Eye Eye exam: Present: normal appearance, EOMI. Absent: nystagmus - ENT ENT exam: Present: normal exam, normal orophraynx, mucous membranes moist, normal external ear exam - Neck Neck exam: Present: normal inspection, full ROM. Absent: tenderness, meningismus - Respiratory Respiratory exam: Present: normal lung sounds bilaterally. Absent: respiratory distress, wheezes, rales, rhonchi, stridor, decreased breath sounds - Cardiovascular Cardiovascular Exam: Present: regular rate, normal rhythm, normal heart sounds. Absent: bradycardia, tachycardia, irregular rhythm, systolic murmur, diastolic murmur, rubs, gallop - GI/Abdominal GI/Abdominal exam: Present: soft, normal bowel sounds. Absent: distended, tenderness, guarding, rebound, rigid, pulsatile mass - Rectal Rectal exam: Present: normal inspection, normal rectal tone, heme (+) stool, other (Anal fissure at 6:00). Absent: decreased rectal tone - Extremities Exam Extremities exam: Present: normal inspection, full ROM, other (2+ pulses noted in the bilateral upper and lower extremities. There is no palpable cord. negative Homans sign. Muscular compartments are soft. The pelvis is stable.). Absent: pedal edema, calf tenderness - Back Exam Back exam: Present: normal inspection, full ROM. Absent: tenderness, CVA tenderness (R), CVA tenderness (L), paraspinal tenderness, vertebral tenderness - Neurological Exam Neurological exam: Present: alert, oriented X3, normal gait, other (No facial droop. Tongue midline. Extraocular movements intact bilaterally. Facial sensation intact to light touch in V1, V2, V3 distribution bilaterally. 5 and a 5 strength in 4 extremities. Sensation intact to light touch in 4 extremities.). Absent: motor sensory deficit - Psychiatric Psychiatric exam: Present: anxious - Skin Skin exam: Present: warm, dry, intact, normal color. Absent: rash ED Course Vital Signs 09/01/20 09/01/20 09/01/20 21:04 23:10 23:16 Temperature 98.2 F Pulse Rate 94 H 82 72 Respiratory 12 10 L 13 Rate Blood Pressure 162/112 171/105 O2 Sat by Pulse 96 98 98 Oximetry 09/01/20 09/02/20 23:54 00:00 Temperature Pulse Rate Respiratory Rate Blood Pressure 171/105 157/81 O2 Sat by Pulse 97 96 Oximetry - Reevaluation(s) Reevaluation #1: 09/01/20 23:58 Differential diagnosis, including but not limited to: Diverticulosis, angiodysplasia, anal fissure, colonic malignancy Assessment and plan: 44-year-old female, who is afebrile with reassuring vital signs with the exception of elevated blood pressure, with a complaint of intermittent bloody bowel movements for the past 48 hours. Hemoglobin, hematocrit appear to be at baseline. She did have a bowel movement here in the emergency room after we asked her to, which showed brown stool, with some dark blood. We will discuss with gastroenterology on-call to determine optimal plan of care. Reevaluation #2: 09/01/20 23:59 Elevated blood pressure reviewed and appreciated. Patient is asymptomatic. We will withhold antihypertensive therapy at this time please reference the [employer] clinical policy on asymptomatic hypertension. Reevaluation #3: 09/02/20 00:17 Discussed history, physical, pertinent physical exam findings and laboratory studies with gastroenterology on-call, Dr. Aisha Mack We have both of the opinion that it would be suitable to have the patient c losely follow-up as an outpatient, given her hemodynamic stability, and relative improvement in hemoglobin/hematocrit when compared to prior laboratory studies from 2019. Patient is updated. Patient incidentally now complains of headache for 3 days, throbbing, gradual, not sudden or thunderclap in nature, not maximal in intensity, not not the worst headache of her life. No facial droop. Tongue midline. Extraocular movements intact bilaterally. Facial sensation intact to light touch in V1, V2, V3 distribution bilaterally. 5 and a 5 strength in 4 extremities. Sensation intact to light touch in 4 extremities. Patient has no meningeal signs, or any red flag physical exam findings. She is counseled to avoid ibuprofen and Motrin and NSAIDs. Tylenol for pain. She can follow-up with outpatient primary care for elevated blood pressure and/or headache. She reports that she is reliable to follow-up with outpatient gastroenterology. Return precautions are reviewed. ED Medical Decision Making - Lab Data Result diagrams: 09/01/20 21:12 09/01/20 21:12 Vital Signs 09/01/20 09/01/20 09/01/20 21:04 23:10 23:16 Temperature 98.2 F Pulse Rate 94 H 82 72 Respiratory 12 10 L 13 Rate Blood Pressure 162/112 171/105 O2 Sat by Pulse 96 98 98 Oximetry Lab Results 09/01/20 09/01/20 09/01/20 Range/Units 21:12 21:12 21:12 WBC 8.7 (4.5-11.0) K/mm3 RBC 2.90 L (3.65-5.03) M/mm3 Hgb 10.3 (10.1-14.3) gm/dl Hct 28.5 L (30.3-42.9) % MCV 98 H (79-97) fl MCH 36 H (28-32) pg MCHC 36 H (30-34) % RDW 16.1 H (13.2-15.2) % Plt Count 412 (140-440) K/mm3 Donley % (Auto) Medical Technologist Chief Add Manual Diff Complete Total Counted 100 Seg Neuts % (Manual) 68.0 (40.0-70.0) % Lymphocytes % (Manual) 24.0 (13.4-35.0) % Monocytes % (Manual) 8.0 H (0.0-7.3) % Promyelocytes % 0 % Nucleated RBC % Not Reportable Seg Neutrophils # Man 5.9 (1.8-7.7) K/mm3 Band Neutrophils # 0.0 K/mm3 Lymphocytes # (Manual) 2.1 (1.2-5.4) K/mm3 Abs React Lymphs (Man) 0.0 K/mm3 Monocytes # (Manual) 0.7 (0.0-0.8) K/mm3 Eosinophils # (Manual) 0.0 (0.0-0.4) K/mm3 Basophils # (Manual) 0.0 (0.0-0.1) K/mm3 Metamyelocytes # 0.0 K/mm3 Myelocytes # 0.0 K/mm3 Promyelocytes # 0.0 K/mm3 Blast Cells # 0.0 K/mm3 WBC Morphology Not Reportable Hypersegmented Neuts Not Reportable Hyposegmented Neuts Not Reportable Hypogranular Neuts Not Reportable Smudge Cells Not Reportable Toxic Granulation Not Reportable Toxic Vacuolation Not Reportable Dohle Bodies Not Reportable Pelger-Huet Anomaly Not Reportable Judie Rods Not Reportable Platelet Estimate Consistent w auto Clumped Platelets Not Reportable Plt Clumps, EDTA Not Reportable Large Platelets Not Reportable Giant Platelets Not Reportable Platelet Satelliting Not Reportable Plt Morphology Comment Not Reportable RBC Morphology Not Reportable Dimorphic RBCs Not Reportable Polychromasia Not Reportable Hypochromasia Not Reportable Poikilocytosis Not Reportable Anisocytosis Rare Microcytosis Not Reportable Macrocytosis Not Reportable Spherocytes Not Reportable Pappenheimer Bodies Not Reportable Sickle Cells Not Reportable Target Cells 2+ Tear Drop Cells Not Reportable Ovalocytes Not Reportable Helmet Cells Not Reportable Fischer-Entiat Bodies Not Reportable [place]ura Rings Not Reportable Elizabeth Cells Not Reportable Bite Cells Not Reportable Crenated Cell Not Reportable Elliptocytes Not Reportable Acanthocytes (Spur) Not Reportable Rouleaux Not Reportable Hemoglobin C Crystals Not Reportable Schistocytes Not Reportable Malaria parasites Not Reportable Logan Bodies Not Reportable Hem Pathologist Commnt No PT 14.2 (12.2-14.9) Sec. INR 1.11 (0.87-1.13) APTT 28.6 (24.2-36.6) Sec. Sodium 137 (137-145) mmol/L Potassium 3.4 L (3.6-5.0) mmol/L Chloride 101.8 (98-107) mmol/L Carbon Dioxide 22 (22-30) mmol/L Anion Gap 17 mmol/L BUN 12 (7-17) mg/dL Creatinine 0.4 L (0.6-1.2) mg/dL Estimated GFR > 60 ml/min BUN/Creatinine Ratio 30 % Glucose 102 H (65-100) mg/dL Calcium 9.0 (8.4-10.2) mg/dL Total Bilirubin 1.50 H (0.1-1.2) mg/dL AST 38 (5-40) units/L ALT 15 (7-56) units/L Alkaline Phosphatase 98 (35-129) units/L Total Protein 7.8 (6.3-8.2) g/dL Albumin 4.6 (3.9-5) g/dL Albumin/Globulin Ratio 1.4 % Urine Color (Yellow) Urine Turbidity (Clear) Urine pH (5.0-7.0) Ur Specific [place] (1.003-1.030) Urine Protein (Negative) mg/dL Urine Glucose (UA) (Negative) mg/dL Urine Ketones (Negative) mg/dL Urine Blood (Negative) Urine Nitrite (Negative) Urine Bilirubin (Negative) Urine Urobilinogen (<2.0) mg/dL Ur Leukocyte Esterase (Negative) Urine WBC (Auto) (0.0-6.0) /HPF Urine RBC (Auto) (0.0-6.0) /HPF U Epithel Cells (Auto) (0-13.0) /HPF 09/01/20 Range/Units 21:16 WBC (4.5-11.0) K/mm3 RBC (3.65-5.03) M/mm3 Hgb (10.1-14.3) gm/dl Hct (30.3-42.9) % MCV (79-97) fl MCH (28-32) pg MCHC (30-34) % RDW (13.2-15.2) % Plt Count (140-440) K/mm3 Donley % (Auto) Add Manual Diff Total Counted Seg Neuts % (Manual) (40.0-70.0) % Lymphocytes % (Manual) (13.4-35.0) % Monocytes % (Manual) (0.0-7.3) % Promyelocytes % % Nucleated RBC % Seg Neutrophils # Man (1.8-7.7) K/mm3 Band Neutrophils # K/mm3 Lymphocytes # (Manual) (1.2-5.4) K/mm3 Abs React Lymphs (Man) K/mm3 Monocytes # (Manual) (0.0-0.8) K/mm3 Eosinophils # (Manual) (0.0-0.4) K/mm3 Basophils # (Manual) (0.0-0.1) K/mm3 Metamyelocytes # K/mm3 Myelocytes # K/mm3 Promyelocytes # K/mm3 Blast Cells # K/mm3 WBC Morphology Hypersegmented Neuts Hyposegmented Neuts Hypogranular Neuts Smudge Cells Toxic Granulation Toxic Vacuolation Dohle Bodies Pelger-Huet Anomaly Judie Rods Platelet Estimate Clumped Platelets Plt Clumps, EDTA Large Platelets Giant Platelets Platelet Satelliting Plt Morphology Comment RBC Morphology Dimorphic RBCs Polychromasia Hypochromasia Poikilocytosis Anisocytosis Microcytosis Macrocytosis Spherocytes Pappenheimer Bodies Sickle Cells Target Cells Tear Drop Cells Ovalocytes Helmet Cells Fischer-Entiat Bodies [place] Rings Elizabeth Cells Bite Cells Crenated Cell Elliptocytes Acanthocytes (Spur) Rouleaux Hemoglobin C Crystals Schistocytes Malaria parasites Logan Bodies Hem Pathologist Commnt PT (12.2-14.9) Sec. INR (0.87-1.13) APTT (24.2-36.6) Sec. Sodium (137-145) mmol/L Potassium (3.6-5.0) mmol/L Chloride (98-107) mmol/L Carbon Dioxide (22-30) mmol/L Anion Gap mmol/L BUN (7-17) mg/dL Creatinine (0.6-1.2) mg/dL Estimated GFR ml/min BUN/Creatinine Ratio % Glucose (65-100) mg/dL Calcium (8.4-10.2) mg/dL Total Bilirubin (0.1-1.2) mg/dL AST (5-40) units/L ALT (7-56) units/L Alkaline Phosphatase (35-129) units/L Total Protein (6.3-8.2) g/dL Albumin (3.9-5) g/dL Albumin/Globulin Ratio % Urine Color Yellow (Yellow) Urine Turbidity Clear (Clear) Urine pH 5.0 (5.0-7.0) Ur Specific [place] 1.010 (1.003-1.030) Urine Protein <15 mg/dl (Negative) mg/dL Urine Glucose (UA) Neg (Negative) mg/dL Urine Ketones Neg (Negative) mg/dL Urine Blood Sm (Negative) Urine Nitrite Neg (Negative) Urine Bilirubin Neg (Negative) Urine Urobilinogen < 2.0 (<2.0) mg/dL Ur Leukocyte Esterase Sm (Negative) Urine WBC (Auto) 6.0 (0.0-6.0) /HPF Urine RBC (Auto) 3.0 (0.0-6.0) /HPF U Epithel Cells (Auto) 4.0 (0-13.0) /HPF Critical care attestation.: If time is entered above; I have spent that time in minutes in the direct care of this critically ill patient, excluding procedure time. ED Disposition Clinical Impression: History of GI bleed, Hypokalemia, Elevated blood pressure reading Disposition: TO HOME OR SELFCARE Is pt being admited?: No Does the pt Need Aspirin: No Condition: Good Instructions: Hypertension, Adult, Gastrointestinal Bleeding Additional Instructions: Please follow-up with a tile sorter within the next 3 to 5 days. [facility] is a local gastroenterology practice. Dr. Mack is a local tile sorter. Do not take Motrin, ibuprofen, Naprosyn, Aleve, and avoid consumption of aspirin and alcohol. Take the Tylenol as needed for pain, and potassium supplementation as directed. Please follow-up with the primary care doctor, such as Dr. Peg Brown Within the next month. Please return to the emergency room right away with new pain, worsened pain, migration of pain, projectile vomiting, change in mental status, confusion, inability to tolerate liquid feeds, new, worsened or different symptoms not present on the initial emergency room evaluation. Referrals: LOUISE MACK MD [Staff Physician] - 3-5 Days [facility] [Provider Group] - 3-5 Days SIMON BROWN MD [Staff Physician] - 3-5 Days Forms: Accompanied Note, Work/School Release Form(ED)
[2020-09-02] MEDS ORDERED: POTASSIUM CHLORIDE ER 20 MEQ TAB PO ONE
[2020-09-02] MEDS ORDERED: ACETAMINOPHEN 325 MG TAB PO STA (00:17)
[2020-09-02 00:45] VITALS: BP 160/99
== END 2020-09-02 00:45 | disposition home or self-care (01) ==
LOC: ED 20:28
DX: E87.6 Hypokalemia (principal); K92.2 Gastrointestinal hemorrhage, unspecified; R03.0 Elevated blood-pressure reading, without diagnosis of hypertension; F17.200 Nicotine dependence, unspecified, uncomplicated; Z98.890 Other specified postprocedural states; Z79.899 Other long term (current) drug therapy
CPT/HCPCS: 36415; 80053; 81001; 85007; 85025; 85610; 85730; 99283